=== PATIENT | female | born 1960 | race Caucasian/White ===

== ENCOUNTER → 2017-08-24 | Outpatient (CLI) | payer BC ==
[2015-11-19 20:14] VITALS: BP 134/72
[2017-08-24 09:01] LABS: ALANINE AMINOTRANSFERASE 49 Units/L (12-78); ASPARTATE AMINO TRANSFERASE 27 Units/L (15-37)
== END ==
LOC: LAB 08:20
PROVIDERS: ATTEND Podiatrist
DX: B35.1 Tinea unguium (principal)
CPT/HCPCS: 36415; 84450; 84460